=== PATIENT | male | born 2000 | race Two or more races ===

== ENCOUNTER 2022-04-30 02:40 | Emergency (ER) | payer BC, MEDICAID ==
[~2022-04-30] VITALS: Ht 175.3 cm; Wt 61.2 kg
[2022-04-30 02:53] VITALS: BP 122/79
== END 2022-04-30 03:17 | disposition left against medical advice (07) ==
LOC: EDBD 02:40 → ER 02:40
DX: R50.9 Fever, unspecified (principal); R05.9 Cough, unspecified; R11.0 Nausea; Z53.21 Procedure and treatment not carried out due to patient leaving prior to being seen by health care provider